=== PATIENT | female | born 1985 | race Caucasian/White ===

== ENCOUNTER 2017-05-21 14:15 | Emergency (ER) | payer OTHER ==
[~2017-05-21] VITALS: Ht 172.7 cm; Wt 49.9 kg
[~2017-05-21 14:15] MED LIST: AMOXIL500 MG PO; AUGMENTIN 875 M1 TAB PO; CIPRO250 MG PO; CIPROFLOXACIN500 MG PO; IBUPROFEN600 MG PO; KEFLEX250 MG PO; LOTRISONE 0.05%1 CRE TP; MOTRIN600 MG PO; MOTRIN800 MG PO; NKHM; PRENATAL1 TA1 PO; ROBITUSSIN DM120 ML PO; TRAMADOL HCL50 MG PO; VICODIN 5/500 505 MG PO; ZOFRAN ODT4 MG SL
[2017-05-21] MEDS ORDERED: Motrin,Rufen800 MG PO (15:40)
[2017-05-21] MEDS ORDERED: VIBRAMYCIN100 MG PO (15:43)
== END 2017-05-21 19:08 | disposition home or self-care (01) ==
LOC: ED 14:15
PROVIDERS: Physician Assistant
DX: M25.462 Effusion, left knee (principal); F17.200 Nicotine dependence, unspecified, uncomplicated; Z79.899 Other long term (current) drug therapy; Z91.040 Latex allergy status

== ENCOUNTER 2017-06-18 16:05 | Emergency (ER) | payer OTHER ==
[~2017-06-18] VITALS: Ht 172.7 cm; Wt 49.9 kg
[~2017-06-18 16:05] MED LIST changes: +Motrin,Rufen800 MG PO; +VIBRAMYCIN100 MG PO
== END 2017-06-18 17:24 | disposition left against medical advice (07) ==
LOC: ED 16:05
DX: S81.811A Laceration without foreign body, right lower leg, initial encounter (principal); F17.200 Nicotine dependence, unspecified, uncomplicated; Z91.040 Latex allergy status; Z79.899 Other long term (current) drug therapy; W45.8XXA Other foreign body or object entering through skin, initial encounter; Y93.89 Activity, other specified; Y92.89 Other specified places as the place of occurrence of the external cause; Y99.9 Unspecified external cause status

== ENCOUNTER 2017-09-13 01:31 | Emergency (ER) | payer OTHER ==
[~2017-09-13] VITALS: Ht 172.7 cm; Wt 49.9 kg
== END 2017-09-13 03:24 | disposition home or self-care (01) ==
LOC: ED 01:31
DX: S20.311A Abrasion of right front wall of thorax, initial encounter (principal); M25.511 Pain in right shoulder; Z91.040 Latex allergy status; Z79.899 Other long term (current) drug therapy; V89.2XXA Person injured in unspecified motor-vehicle accident, traffic, initial encounter; Y93.89 Activity, other specified; Y92.89 Other specified places as the place of occurrence of the external cause; Y99.8 Other external cause status

== ENCOUNTER 2018-11-02 19:34 | Emergency (ER) | payer OTHER ==
[~2018-11-02] VITALS: Ht 172.7 cm; Wt 49.9 kg
[2019-04-18] MEDS ORDERED: METROGEL-VAGINA70 GM V (16:11)
== END 2018-11-02 20:56 | disposition home or self-care (01) ==
LOC: ED 19:34
DX: S60.212A Contusion of left wrist, initial encounter (principal); Z91.040 Latex allergy status; Z79.2 Long term (current) use of antibiotics; Z79.899 Other long term (current) drug therapy; W01.0XXA Fall on same level from slipping, tripping and stumbling without subsequent striking against object, initial encounter; Y93.89 Activity, other specified; Y92.218 Other school as the place of occurrence of the external cause; Y99.8 Other external cause status

== ENCOUNTER 2018-11-24 08:47 | Emergency (ER) | payer OTHER ==
[~2018-11-24] VITALS: Ht 172.7 cm; Wt 47.6 kg
[2018-11-24] MEDS ORDERED: NAPROSYN500 MG PO (10:25)
[2018-11-24] MEDS ORDERED: TYLENOL325 M1 PO (10:25)
[2018-11-24] MEDS ORDERED: VOLTAREN100 GM T (10:25)
[2018-11-24] MEDS ORDERED: ARTHRITIS PAI42.5 GM T (10:25)
[2018-11-24] MEDS ORDERED: COLACE100 MG PO (10:27)
[2019-04-18] MEDS ORDERED: METROGEL-VAGINA70 GM V (16:11)
== END 2018-11-24 10:38 | disposition home or self-care (01) ==
LOC: ED 08:47
DX: S32.2XXA Fracture of coccyx, initial encounter for closed fracture (principal); Z91.040 Latex allergy status; W10.8XXA Fall (on) (from) other stairs and steps, initial encounter; Y93.89 Activity, other specified; Y92.89 Other specified places as the place of occurrence of the external cause; Y99.8 Other external cause status

== ENCOUNTER 2022-09-23 14:05 | Emergency (ER) | payer OTHER ==
[~2022-09-23] VITALS: Ht 170.1 cm; Wt 50.8 kg
[~2022-09-23 14:05] MED LIST changes: +ARTHRITIS PAI42.5 GM T; +COLACE100 MG PO; +METROGEL-VAGINA70 GM V; +NAPROSYN500 MG PO; +TYLENOL325 M1 PO; +VOLTAREN100 GM T
== END 2022-09-23 16:06 | disposition left against medical advice (07) ==
LOC: ED 14:05
DX: K08.89 Other specified disorders of teeth and supporting structures (principal); Z53.21 Procedure and treatment not carried out due to patient leaving prior to being seen by health care provider

== ENCOUNTER → 2024-10-04 | Day surgery (SDC) | payer OTHER ==
[~2024-10-04] VITALS: Ht 170.1 cm; Wt 47.6 kg
[~2024-10-04] MED LIST changes: +Bacitracin Zinc/Neomycin/Pol 0.9 GM PACKET T ONE; +Bacitracin Zinc/Neomycin/Pol 15 GM TUBE T ONE; +Dexamethasone Sodium Phospha 4 MG/ML VIAL IV ONE; +EPINEPHrine/Lidocaine Hydroc 20 ML VIAL ONE; +Lactated Ringer's Solution 500 ML IV ONE; +Lidocaine Hydrochloride 30 ML VIAL ONE; +Lidocaine Hydrochloride 5 ML VIAL IV ONE; +Midazolam Hydrochloride 2 MG/2 ML VIAL IV ONE; +Ondansetron Hydrochloride 4 MG/2 ML VIAL IV ONE; +PROPOFOL 200 MG/20 ML VIAL IV ONE; +ROCURONIUM BROMIDE 50 MG/5 ML SYRINGE IV ONE; +SEVOFLURANE 250 ML BOT INH ONE; +SUGAMMADEX SODIUM 200 MG/2 ML VIAL IV ONE; +fentaNYL CITRATE 100 MCG/2 ML VIAL IV ONE
[2024-10-04 07:00] VITALS: BP 97/56
[2024-10-04 08:15] VITALS: BP 108/64
[2024-10-04 08:30] VITALS: BP 116/60
[2024-10-04 08:45] VITALS: BP 118/79
[2024-10-04 09:00] VITALS: BP 103/84
== END | disposition home or self-care (01) ==
LOC: SDC 09-30 08:45
PROVIDERS: ATTEND Obstetrics & Gynecology
DX: L81.8 Other specified disorders of pigmentation (principal); C51.0 Malignant neoplasm of labium majus; N90.89 Other specified noninflammatory disorders of vulva and perineum; F17.210 Nicotine dependence, cigarettes, uncomplicated; Z98.51 Tubal ligation status; Z91.040 Latex allergy status; Z98.890 Other specified postprocedural states; Z79.899 Other long term (current) drug therapy; Z80.41 Family history of malignant neoplasm of ovary